=== PATIENT | female | born 1995 | race Caucasian/White ===

== ENCOUNTER 2020-01-14 11:27 | Emergency (ER) | payer MEDICAID, SELFPAY ==
[2020-01-14 11:28] VITALS: BP 121/66; PULSE 114; RESP 18; TEMP 36.5; O2SAT 94; BMI 50.6
--- NOTE | 2020-01-14 11:39 | ED.DCSUM_ITS ---
History of Present Illness Chief Complaint: Abscess Informant: Patient Onset: Days Context: Gradual Onset Timing: Continuous Current Severity: Moderate Maximum Severity: Moderate Narrative: The patient is an otherwise healthy 24-year-old female that presents to the emergency department with abscess. Patient states 3 days ago, she noticed a painful area on her right buttock near her gluteal crease. She states that it is increased in size. She states that she has some some drainage. She states it hurts to sit. She denies any fevers or chills. She has no history of immunosuppression. She states she is otherwise been in her normal state of health. She states she is never had an abscess before. Prior similar symptoms: No Recent Illness/Hospitalization: No Past Medical History - Allergies and Home Meds Allergies/Adverse Reactions: Allergies No Known Allergies Allergy (Verified 01/14/20 11:32) Prior records reviewed: Yes Past Medical History: None Surgical History: no surgical history Review of Systems General: Denies: Chills, Fever, Sweats Eyes: Denies: Visual changes - bilaterally, Diplopia ENT: Denies: Rhinorrhea, Sore throat Cardiovascular: Denies: Chest pain, Palpitations Respiratory: Denies: Dyspnea, Cough, Dyspnea on exertion Gastrointestinal: Denies: Abdominal pain, Nausea, Vomiting, Diarrhea, Melena, Hematochezia Genitourinary: Denies: Dysuria, Hematuria, Frequency Musculoskeletal: Denies: Back pain, Extremity Pain Skin: Denies: Rash, Wounds Neurological: Denies: Headache, Weakness, Numbness Physical Exam Vital Signs/Narrative: Vital Signs Temp Pulse Resp BP Pulse Ox 01/14/20 11:28 97.7 F L 114 H 18 121/66 H 94 Inital Vital Signs reviewed: Yes General: Well nourished, Well developed, No Acute Distress Head: Normocephalic, Atraumatic Eyes: Perrl, EOMI ENT: Moist mucous membranes, No rhinorrhea Neck: Supple, Nontender Cardiovascular: Regular rate, Regular rhythm, No murmurs Respiratory: No distress, CTA bilaterally, Chest nontender Abdomen: Soft, Nontender, Nondistended, Normal bowel sounds Rectal: - - Patient has well circumcised gluteal abscess just to the right of the midline. Does not appear to involve the pilonidal area. It does not involve the rectum or anus. Back: Nontender, Normal Inspection Extremities: Nontender, No edema Skin: Normal color, No rash Neurological: Alert, Oriented x3, Cranial nerves II-XII grossly intact, Normal Strength, Normal Sensation Psychological: Normal affect, Normal Mood Diagnostic/Tx/Re-eval - Medical Decision Making Once the patient was laid prone, it did appear as if this was a pilonidal cyst communicating with the right buttock. She was consented for incision and drainage. Under sterile technique, 8 cc of a mixture of bupivacaine and 1% lidocaine with epinephrine was injected. Once anesthesia was achieved, the pilonidal cyst was opened. Loculations were able to be expressed. The patient tolerated this well. It was a shallow pocket that would not hold packing. Because of this, the patient will be placed on antibiotics, analgesics, and will continue warm soaks. She was counseled on concerning symptoms and reasons to return to the emergency department. I did director of group counseling program her that I want this wound to be reevaluated within 48 hours and she is comfortable with this plan of care. Impression 1. Pilonidal cyst with abscess 2. Incision and drainage of pilonidal cyst ED Disposition - Plan for ED Patient: Instructions: ED Cyst Pilonidal Infected IandD Prescriptions: Amox/Clavulanate Tablet [Augmentin Tablet] 875 mg PO Q12H #20 tab Prescription Printed Smz/Tmp Ds [Bactrim Ds] 1 tab PO BID #14 tab Prescription Printed Hydrocodone Bitart/Apap 5-325 [[place] 5MG-325MG] 1 tab PO Q6H PRN PRN 3 Days #10 tab PRN Reason: Pain Prescription Printed
[2020-01-14] MEDS: Bupivacaine Mpf 0.5% 30 ML VIAL INFILT (12:47)
[2020-01-14 13:54] VITALS: PULSE 72; RESP 18
== END 2020-01-14 13:56 | disposition home or self-care (01) ==
PROVIDERS: Emergency Provider Emergency Medicine
DX: L05.01 Pilonidal cyst with abscess (principal)
CPT/HCPCS: 10080; 99282